=== PATIENT | male | born 2000 | race Hispanic/Latino ===

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

== ENCOUNTER 2020-10-15 20:18 | Outpatient (CLI) | payer BC | END 2020-10-15 20:19 | disposition home or self-care (01) | LOC: BURRAD 20:18 | PROVIDERS: ATTEND Family Medicine | DX: M54.31 Sciatica, right side (principal); M48.07 Spinal stenosis, lumbosacral region; K59.00 Constipation, unspecified | CPT/HCPCS: 72100 ==